=== PATIENT | male | born 1990 | race Caucasian/White ===

== ENCOUNTER 2016-10-24 13:49 | Emergency (ER) | payer BC ==
[2016-10-24] MEDS ORDERED: NS 1,000 ML IV ONE (13:56)
[2016-10-24 14:00] VITALS: RESP 16; TEMP 97.7
--- NOTE | 2016-10-24 14:06 | CPEKG ---
Heart Rate: 77 RR Interval: 779 P-R Interval: 164 QRSD Interval: 100 QT Interval: 380 QTC Interval: 431 P [place]: 72 QRS [place]: 78 T Wave [place]: 55 EKG Severity - NORMAL ECG - EKG Impression: SINUS RHYTHM EKG Impression: DIFFUSE NV DEPRESSION WITH ANTERIOR ST ELEVATION CONSISTENT WITH PERICARDITIS Electronically Signed By: Everette Magallanes 24-Oct-2016 14:37:11
[2016-10-24 14:09] LABS: % IMMATURE GRANULYOCYTES 0.7 % (0.0-1.1); ABSOLUTE IMMATURE GRANULOCYTES 0.06 10^3/uL (0.00-0.10); ADD DIFF? NO; ADD MORPH? NO; ADD SCAN? NO; ATYPICAL LYMPHOCYTE FLAG 20 (0-99); FRAGMENT RBC FLAG 0 (0-99); HEMATOCRIT 45.7 % (40.0-51.0); HEMOGLOBIN 15.9 g/dL (13.7-17.5); LEFT SHIFT FLG 50 (0-99); LIPEMIA HEMOLYSIS FLAG 90 (0-99); MEAN CELL HEMOGLOBIN 30.6 pg (27.9-34.1); MEAN CELL HEMOGLOBIN CONCENTR. 34.8 g/dL (32.4-36.7); MEAN CELL VOLUME 88.1 fL (81.5-99.8); MEAN PLATELET VOLUME 10.1 fL (8.7-11.7); PLATELET CLUMPS FLAG 0 (0-99); PLATELET COUNT 232 10^3/uL (150-400); RED BLOOD CELL COUNT 5.19 10^6/uL (4.40-6.38); RED CELL DISTRIBUTION WIDTH 12.7 % (11.5-15.2)
[2016-10-24 14:21] LABS: ANION GAP 17 mEq/L (8-16); CARBON DIOXIDE 20 mEq/l (22-31); CHLORIDE 102 mEq/L (97-110); CREATININE 0.9 mg/dL (0.7-1.3); GLOMERULAR FILTRATION RATE > 60; GLUCOSE 124 mg/dL (70-100); POTASSIUM 3.4 mEq/L (3.5-5.2); SODIUM 139 mEq/L (134-144)
[2016-10-24 14:32] LABS: TROPONIN I < 0.012 ng/mL (0-0.034)
--- NOTE | 2016-10-24 14:46 | EDPHY ---
H & P Stated Complaint: sob for 2 weeks with cp, better with o2, - Personal History Current Tetanus/Diphtheria Vaccine: Yes Current Tetanus Diphtheria and Acellular Pertussis (TDAP): Yes - Medical/Surgical History Hx Asthma: No Hx Chronic Respiratory Disease: No Hx Diabetes: No Hx Cardiac Disease: No Hx Renal Disease: No Hx Cirrhosis: No Hx Alcoholism: No Hx HIV/AIDS: No Hx Splenectomy or Spleen Trauma: No Other PMH: none - Social History Smoking Status: Never smoked HPI/ROS: Chief complaint: Almost passed out History of present illness: This is a 26-year-old male who presents to the emergency department with EMS after almost passing out. Patient was at lunch eating and having a beer when he became lightheaded like he was going to pass out. EMS was called at that time. Patient does report he has had associated chest pain and trouble breathing. He describes a sharp chest pain. Breathing is worse when he takes a deep breath. He states he has had similar symptoms of chest pain and trouble breathing for the last few weeks. He was sick approximately 2 weeks ago. He did go to an urgent care at that time was told he had "inflammation in the chest". On my evaluation patient states he is feeling better. He denies associated signs or symptoms including no fevers or cold symptoms, no cough, no history of trauma, no pain or swelling in the legs. Review of systems: A 10 point review of systems was obtained and other than described above was negative (Miller Lewis) - Physical Exam Exam: General Appearance: Alert, nontoxic. Eyes: Pupils equal and round no pallor or injection. ENT, Mouth: Mucous membranes moist. Respiratory: There are no retractions, lungs are clear to auscultation. Cardiovascular: Regular rate and rhythm. Gastrointestinal: Abdomen is soft and nontender, no masses, bowel sounds normal. Neurological: Alert and oriented x4. Strength and sensation intact and symmetrical. Skin: Warm and dry, no rashes. Musculoskeletal: Neck is supple nontender. Extremities are symmetrical, full range of motion. Psychiatric: Patient is oriented X 3, there is no agitation. (Miller Lewis) Constitutional: Initial Vital Signs Temperature (C) 36.5 C 10/24/16 13:57 Heart Rate 78 10/24/16 13:57 Respiratory Rate 16 10/24/16 13:57 Blood Pressure 125/68 H 10/24/16 13:57 O2 Sat (%) 99 10/24/16 13:57 O2 Delivery Mode Room Air Allergies/Adverse Reactions: No Known Allergies Allergy (Unverified 10/24/16 14:00) Home Medications: Medication Instructions Recorded Colchicine 0.6 mg PO BID #10 capsule 10/24/16 Teresa Cosby 10/24/16 Medical Decision Making - Diagnostics Imaging: Chest x-ray with possible airway disease Echocardiogram largely unremarkable, reviewed by my attending physician Dr. Magallanes (Miller Lewis) ED Course/Re-evaluation: Patient discussed with my secondary supervising physician Dr. Everette Magallanes. Patient presents to the emergency department with EMS after having a near syncopal episode. He has had associated chest pain and shortness of breath for the last few weeks. On presentation he is nontoxic. He is afebrile and vital signs are stable. Blood studies largely unremarkable. EKG with trace ST elevation concerning for pericarditis. Chest x-ray largely unremarkable. Echocardiogram largely unremarkable. My suspicion for serious pathology requiring inpatient management is low. Patient is discharged home. He will be discharged on colchicine for possible pericarditis. Home care is discussed. He is asked to follow up with a primary care doctor and international manager for continued evaluation and care and referral information is given. Return precautions are given. Patient voiced understanding and agreement with plan. ( Miller Lewis) Differential Diagnosis: Included but not limited to dehydration, vasovagal, anemia, electrolyte disturbances, PE, cardiac dysrhythmia, ACS (Miller Lewis) Other Provider: My evaluation the patient does appear to have AL depression and some ST elevation on his EKG. This would be consistent with his chest pain which is somewhat positional and pericarditis. He also had an viral type infection just over a week ago. We will treat him with anti-inflammatories and cultures seen and have him follow up with Cardiology. His troponin is negative and vital signs are stable. (Everette Magallanes) - Data Points Laboratory Results: Laboratory Results 10/24/16 14:01 10/24/16 14:01 10/24/16 10/24/16 10/24/16 14:01 14:01 14:01 WBC 8.25 10^3/uL 10^3/uL (3.80-9.50) RBC 5.19 10^6/uL 10^6/uL (4.40-6.38) Hgb 15.9 g/dL g/dL (13.7-17.5) Hct 45.7 % % (40.0-51.0) MCV 88.1 fL fL (81.5-99.8) MCH 30.6 pg pg (27.9-34.1) MCHC 34.8 g/dL g/dL (32.4-36.7) RDW 12.7 % % (11.5-15.2) Plt Count 232 10^3/uL 10^3/uL (150-400) MPV 10.1 fL fL (8.7-11.7) Neut % (Auto) 68.7 % % (39.3-74.2) Lymph % (Auto) 26.3 % % (15.0-45.0) Avery % (Auto) 3.4 % L % (4.5-13.0) Eos % (Auto) 0.7 % % (0.6-7.6) Baso % (Auto) 0.2 % L % (0.3-1.7) Nucleat RBC Rel Count 0.0 % % (0.0-0.2) Absolute Neuts (auto) 5.66 10^3/uL 10^3/uL (1.70-6.50) Absolute Lymphs (auto) 2.17 10^3/uL 10^3/uL (1.00-3.00) Absolute Monos (auto) 0.28 10^3/uL L 10^3/uL (0.30-0.80) Absolute Eos (auto) 0.06 10^3/uL 10^3/uL (0.03-0.40) Absolute Basos (auto) 0.02 10^3/uL 10^3/uL (0.02-0.10) Absolute Nucleated RBC 0.00 10^3/uL 10^3/uL (0-0.01) Immature Gran % 0.7 % % (0.0-1.1) Immature Gran # 0.06 10^3/uL 10^3/uL (0.00-0.10) D-Dimer < 0.27 ug/mLFEU ug/mLFEU (0.00-0.50) Sodium 139 mEq/L mEq/L (134-144) Potassium 3.4 mEq/L L mEq/L (3.5-5.2) Chloride 102 mEq/L mEq/L (97-110) Carbon Dioxide 20 mEq/l L mEq/l (22-31) Anion Gap 17 mEq/L H mEq/L (8-16) BUN 9 mg/dL mg/dL (7-23) Creatinine 0.9 mg/dL mg/dL (0.7-1.3) Estimated GFR > 60 Glucose 124 mg/dL H mg/dL (70-100) Calcium 10.0 mg/dL mg/dL (8.5-10.4) Troponin I < 0.012 ng/mL ng/mL (0-0.034) Medications Given: Discontinued Medications Sodium Chloride (Ns) 1,000 mls @ 0 mls/hr IV ONCE ONE PRN Reason: Wide Open Stop: 10/24/16 13:57 Last Admin: 10/24/16 14:16 Dose: 1,000 mls Departure - Departure Disposition: Home, Routine, Self-Care Clinical Impression: Near syncope Pericarditis Qualifiers: Pericarditis type: unspecified type Chronicity: acute Qualified Code(s): I30.9 - Acute pericarditis, unspecified Condition: Good Instructions: Near Syncope (ED), Acute Pericarditis (ED) Additional Instructions: Follow-up with a primary care doctor and a international manager for continued evaluation and care If symptoms worsen or new symptoms develop return to the emergency room for recheck Referrals: Marilin Long MD [Medical Doctor] - As per Instructions [facility],. [Clinic] - As per Instructions Patient,NotPresent [Unknown] - As per Instructions Bill Wagoner MD [Medical Doctor] - As per Instructions Prescriptions: Colchicine 0.6 mg PO BID #10 capsule
--- NOTE | 2016-10-24 15:40 | ECHO ---
[id number] + + [address] : : [place] [address] : : [phone] + Adult Echocardiographic Report + ------+ :Name: Dorothy GONZALEZ Date: 10/24/2016 03:07 PM : : Hospital Admission Number: [id number] Locati on: ER: :: 1990 Gender: Male Height: 71 in : :Age: 26 yrs Race: YOUSIF SONG Weight: 165 lb : :Reason For Study: Dyspnea/chest pain : : BSA: 1.9 meter s2 : + ------+ MMode/2D Measurements \T\ Calculations IVSd: 0.65 cm LVIDd: 5.6 cm FS: 36.2 % Ao root diam: LVPWd: 0.82 cm LVIDs: 3.6 cm EDV(Teich): 3.2 cm 152.4 ml LA dimension: ESV(Teich): 3.2 cm 53.0 ml EF(Teich): 65.2 % LVLd ap4: 9.9 cm SV(MOD-sp4): EDV(MOD-sp4): 79.0 ml 116.0 ml LVLs ap4: 7.8 cm ESV(MOD-sp4): 37.0 ml EF(MOD-sp4): 68.1 % Normal Measurement Values: + + :LVIDd (3.5-5.7cm) IVSd (0.6-1.1cm) LVPWd (0.6-1.1cm) Aortic Root (2.0-3.7cm)Left Atrium (1.5-4.0cm): :LV Vol(d) (76-115ml) LV Vol(s) (29-48ml) Ejec Fraction (50-65%)PV Scott (0.6- 1.2m/s) TV Scott (0.4-1.0m/s) : :MV E Scott (0.8-1.0m/s)MV A Scott (0.3-1.0m/s)LVOT Scott (0.7-1.2m/s) Asc Ao Scott ( 0.9-1.8m/s) : + + Doppler Measurements \T\ Calculations MV E max scott: 69.1 cm/sec Ao V2 max: 133.0 cm/sec MV A max scott: 51.8 cm/sec Ao max P.1 mmHg MV E/A: 1.3 Left Ventricle The left ventricle is normal in size and function. There is normal left ventricular wall thickness. Left ventricular systolic function is normal. Ejection Fraction = 65-70%. No regional wall motion abnormalities noted. Right Ventricle The right ventricle is normal in size and function. Atria The left atrial size is normal. Right atrial size is normal. The interatrial septum is intact with no evidence for an atrial septal defect. Mitral Valve The mitral valve is normal in structure and function. There is no evidence of mitral valve prolapse. There is no mitral valve stenosis. There is trace mitral regurgitation. Tricuspid Valve Normal tricuspid valve. There is mild tricuspid regurgitation. Aortic Valve The aortic valve is trileaflet. The aortic valve opens well. There is no aortic stenosis. There is no aortic insufficiency. Pulmonic Valve The pulmonic valve is normal in structure and function. Trace pulmonic valvular regurgitation. Great Vessels The aortic root is normal size. Pericardium/Pleural There is no pericardial effusion. Conclusion A complete two-dimensional transthoracic echocardiogram was performed (2D, M-mode, Doppler and color flow Doppler). The left ventricle is normal in size and function. Left ventricular systolic function is normal. Ejection Fraction = 65-70%. There is trace mitral regurgitation. There is mild tricuspid regurgitation. Trace pulmonic valvular regurgitation. There is no pericardial effusion. Final Reading Physician: Uli Blanton signed on 10/24/2016 03:39 PM Ordering Physician: Miller Lewis Performed By: Sammie Miller RDCS
[2016-10-24 16:19] VITALS: BP 109/50; PULSE 82; O2SAT 99
== END 2016-10-24 16:18 | disposition home or self-care (01) ==
DX: R55 Syncope and collapse (principal); I30.9 Acute pericarditis, unspecified